=== PATIENT | female | born 1940 | race Caucasian/White ===

== ENCOUNTER → 2016-09-28 | Outpatient (CLI) | payer MEDICARE ==
--- NOTE | 2016-09-28 10:19 | REPMRS ---
Patient History The patient states she had a clinical breast exam in 09/25 Patient is postmenopausal and has history of skin cancer at age 46. Family history of colorectal cancer in father at age 50 or over. Digital Woman Screen Mammo: September 28, 2016 - Exam #: [id number] Bilateral CC and MLO view(s) were taken. Technologist: Mikayla Brennan, Technologist Prior study comparison: September 26, 2015, digital woman screen mammo performed at [facility]. September 24, 2014, digital woman screen mammo performed at [facility]. September 24, 2013, digital woman screen mammo performed at [facility] to [facility]. FINDINGS: There are scattered fibroglandular densities. There has been no change in the appearance of the mammogram from the prior studies. There is a mild amount of scattered fibroglandular density which is fairly symmetric. There is no interval development of dominant mass, architectural distortion, or clustered microcalcification suggestive of malignancy. ASSESSMENT: BI-RADS/ACR category 1 mammogram. Negative. Recommendation Routine screening mammogram in 1 year (for women over age 40). This mammogram was interpreted with the aid of an FDA-approved computer-aided dectection system. Electronically Signed By: Norman Sheldon MD 09/28/16 [id number]
--- NOTE | 2016-10-01 10:18 | DEXA ---
AP SPINE L1 - L4 1.084 -0.9 0.5 LT FEMUR TOTAL 0.956 -0.4 1.1 RT FEMUR TOTAL 0.941 -0.5 1.0 TOTAL BODY TOTAL OTHER DUAL FEMUR FRAX* ASSESSMENT Risk factors: History of fracture as an adult. 10 year probability of fracture Major osteoporotic fracture 13.4 % Hip fracture 1.6 % COMMENTS: Normal bone densitometry of the spine and hips. The density of the spine has increased 21.0% since the initial exam on 2004. The spine density has decreased 3.6% since the most recent exam on 08/20/2012. The density of the left hip has increased 4.1% since the initial exam on 2004. The density of the left hip has increased 0.4% since the most recent exam on 08/2012. The density of the right hip has decreased 0.4% since the initial exam on 2004. The density of the right hip has decreased 1.3% since the most recent exam on . FOLLOW-UP: Recommendation for the next bone density exam: 5 years. MTDD
== END ==
LOC: M WHC 08:27
PROVIDERS: ATTEND Nurse Practitioner Family
DX: Z12.31 Encounter for screening mammogram for malignant neoplasm of breast (principal); Z78.0 Asymptomatic menopausal state; Z80.0 Family history of malignant neoplasm of digestive organs
CPT/HCPCS: 77080; G0202

== ENCOUNTER → 2017-11-01 | Outpatient (CLI) | payer MEDICARE | LOC: M WHC 08:52 | DX: Z12.31 Encounter for screening mammogram for malignant neoplasm of breast (principal); Z78.0 Asymptomatic menopausal state | CPT/HCPCS: 77067 ==

== ENCOUNTER 2018-03-26 07:15 | Day surgery (SDC) | payer MEDICARE ==
[2018-03-26] MEDS: NS 1,000 ML IV (07:29)
[2018-03-26] MEDS ORDERED: PROPOFOL 200 MG/20 ML VIAL As Ordered (07:51)
[2018-03-26] MEDS ORDERED: LIDOCAINE 2% INJ 100 MG/5 ML SDV (FOR ANES.) As Ordered (07:51)
== END 2018-03-26 09:40 | disposition home or self-care (01) ==
LOC: M OPP 07:15
DX: Z12.11 Encounter for screening for malignant neoplasm of colon (principal); Z64.0 Problems related to unwanted pregnancy; K57.30 Diverticulosis of large intestine without perforation or abscess without bleeding; Z86.010 Personal history of colon polyps; K21.9 Gastro-esophageal reflux disease without esophagitis; I10 Essential (primary) hypertension; M12.9 Arthropathy, unspecified; Z79.899 Other long term (current) drug therapy; Z87.891 Personal history of nicotine dependence; Z78.0 Asymptomatic menopausal state; Z98.51 Tubal ligation status
CPT/HCPCS: G0105

== ENCOUNTER → 2018-11-10 | Outpatient (CLI) | payer MEDICARE ==
[~2018-11-10] MED LIST: CALTCHW4 PO; LOSA100T5 PO; MULT1TAB10 PO; POTA10TA16 PO; VITA100066 PO
--- NOTE | 2018-11-10 11:10 | REPMRS ---
Patient History The patient states she had a clinical breast exam in 11/2018. Family history of colorectal cancer at age 50 or over in father. 3D TOMOSYNTHESIS WAS PERFORMED. Digital Woman Screen Mammo: November 10, 2018 - Exam #: [id number] Bilateral CC and MLO view(s) were taken. Technologist: Arlene Lang Technologist Prior study comparison: November 01, 2017, digital woman screen mammo performed at [facility] to [facility]. September 28, 2016, digital woman screen mammo performed at [facility] to [facility]. FINDINGS: There are scattered fibroglandular densities. There has been no change in the appearance of the mammogram from the prior studies. There is a mild amount of residual fibroglandular tissue which is fairly symmetric. There is no interval development of dominant mass, architectural distortion, or clustered microcalcification suggestive of malignancy. Assessment: BI-RADS/ACR category 1 mammogram. Negative Mammogram. Recommendation Routine screening mammogram in 1 year (for women over age 40). This mammogram was interpreted with the aid of an FDA-approved computer-aided dectection system. Electronically Signed By: Wilder Coulter MD 11/10/18 0093
== END ==
LOC: M WHC 09:24
PROVIDERS: ATTEND Nurse Practitioner Family
DX: Z12.31 Encounter for screening mammogram for malignant neoplasm of breast (principal)

== ENCOUNTER → 2019-11-11 | Outpatient (CLI) | payer MEDICARE ==
--- NOTE | 2019-11-11 11:35 | REPMRS ---
Patient History The patient states she had a clinical breast exam in November 2019. Family history of colorectal cancer at age 50 or over in father. Digital Woman Screen Mammo: November 11, 2019 - Exam #: [id number] Bilateral CC and MLO view(s) were taken. Technologist: RT Eli Prior study comparison: November 10, 2018, bilateral digital woman screen mammo performed at [facility]. November 01, 2017, digital woman screen mammo performed at [facility]. September 28, 2016, digital woman screen mammo performed at [facility]. FINDINGS: There are scattered fibroglandular densities. There has been no change in the appearance of the mammogram from the prior studies. There is a mild amount of scattered fibroglandular density which is fairly symmetric. There is no interval development of dominant mass, architectural distortion, or grouped microcalcification suggestive of malignancy. 3-D tomosynthesis shows no additional findings. Assessment: BI-RADS/ACR category 1 mammogram. Negative Mammogram. Recommendation Routine screening mammogram of both breasts in 1 year (for women over age 40). This patient's Lifetime Breast Cancer Risk is estimated at 2.4 %. This mammogram was interpreted with the aid of an FDA-approved computer-aided dectection system. Electronically Signed By: Norman Sheldon MD 11/11/19 0245
== END ==
LOC: M WHC 09:06
PROVIDERS: ATTEND Nurse Practitioner Family
DX: Z12.31 Encounter for screening mammogram for malignant neoplasm of breast (principal); Z80.0 Family history of malignant neoplasm of digestive organs

== ENCOUNTER → 2020-11-11 | Outpatient (CLI) | payer MEDICARE ==
--- NOTE | 2020-11-11 10:20 | REPMRS ---
Patient History The patient states she had a clinical breast exam in 11/2020 Family history of colorectal cancer at age 50 or over in father. 3D TOMOSYNTHESIS WAS PERFORMED. The Yao Nelson lifetime risk for breast cancer is 2.1%. Volpara breast density b. Digital Woman Screen Mammo: November 11, 2020 - Exam #: [id number] Bilateral CC and MLO view(s) were taken. Technologist: Mikayla Brennan, Technologist Prior study comparison: November 11, 2019, bilateral digital woman screen mammo performed at [facility]. November 10, 2018, bilateral digital woman screen mammo performed at [facility]. FINDINGS: There are scattered fibroglandular densities. There has been no change in the appearance of the mammogram from the prior studies. There is a mild amount of residual fibroglandular tissue which is fairly symmetric. There is no interval development of dominant mass, architectural distortion, or clustered microcalcification suggestive of malignancy. Assessment: BI-RADS/ACR category 1 mammogram. Negative Mammogram. Recommendation Routine screening mammogram in 1 year (for women over age 40). This mammogram was interpreted with the aid of an FDA-approved computer-aided dectection system. Electronically Signed By: Wilder Coulter MD 11/11/20 1015
--- NOTE | 2020-11-11 12:43 | DEXAMM ---
INDICATION: Z78.0MENOPAUSAL. COMPARISON: 09/28/2016 as well as other prior exams. TECHNIQUE: Bone density was measured using dual-energy x-ray absorptiometry (DEXA). FINDINGS: AP SPINE L1-L4 BMD 1.001 g/cm2 Young Adult T-Score -1.6 Age Matched Z-Score 0.3. LT FEMUR, TOTAL BMD 0.916 g/cm2 Young Adult T-Score -0.7 Age Matched Z-Score 1.2. LT NECK BMD 0.939 g/cm2 Young Adult T-Score -0.7 Age Matched Z-Score 1.4. RT FEMUR, TOTAL BMD 0.900 g/cm2 Young Adult T-Score -0.9 Age Matched Z-Score 1.1. RT NECK BMD 0.949 g/cm2 Young Adult T-Score -0.6 Age Matched Z-Score 1.5. IMPRESSION: There is low bone density of the spine. There is normal bone density of the left hip. There is normal bone density of the right hip. The density of the spine has increased 11.7% since the initial exam on 06/04/2005. The density of the spine decreased 7.7% since most recent exam on 09/28/2016. The density of the left hip has decreased 0.2% since initial exam on 06/04/2005. The density of the left hip has decreased 4.2% since most recent exam on 09/28/2016. The density of the right hip has decreased 4.8% since the initial exam on 06/04/2005. The density of the right hip has decreased 4.4% since the most recent exam on 09/28/2016. FOLLOW-UP: Recommendation for the next bone density exam: 2 years. <Electronically signed by Wilder Coulter > 11/11/20 [id number]
== END ==
LOC: M WHC 08:56
PROVIDERS: ATTEND Nurse Practitioner Family
DX: Z12.31 Encounter for screening mammogram for malignant neoplasm of breast (principal); Z78.0 Asymptomatic menopausal state; Z80.0 Family history of malignant neoplasm of digestive organs

== ENCOUNTER → 2021-11-13 | Outpatient (CLI) | payer MEDICARE ==
[~2021-11-13] MED LIST changes: +POTA-149 PO; -POTA10TA16 PO
== END ==
LOC: M WHC 08:53
PROVIDERS: ATTEND Nurse Practitioner Women's Health
DX: Z12.31 Encounter for screening mammogram for malignant neoplasm of breast (principal)

== ENCOUNTER → 2023-01-09 | Outpatient (CLI) | payer MEDICARE | LOC: M WHC 11:26 | PROVIDERS: ATTEND Obstetrics & Gynecology | DX: Z12.31 Encounter for screening mammogram for malignant neoplasm of breast (principal); R92.8 Other abnormal and inconclusive findings on diagnostic imaging of breast ==

== ENCOUNTER → 2023-01-16 | Outpatient (CLI) | payer MEDICARE | LOC: M WHC 10:46 | PROVIDERS: ATTEND Obstetrics & Gynecology | DX: R92.2 Inconclusive mammogram (principal) | CPT/HCPCS: 77065; 77080; G0279 ==

== ENCOUNTER → 2024-01-14 | Outpatient (CLI) | payer MEDICARE | LOC: M WHC 09:18 | PROVIDERS: ATTEND Family Medicine | DX: Z12.31 Encounter for screening mammogram for malignant neoplasm of breast (principal); Z13.820 Encounter for screening for osteoporosis ==

== ENCOUNTER → 2024-01-14 | Outpatient (CLI) | payer MEDICARE | LOC: M WHC 09:17 | PROVIDERS: ATTEND Obstetrics & Gynecology | DX: Z12.31 Encounter for screening mammogram for malignant neoplasm of breast (principal); Z13.820 Encounter for screening for osteoporosis; N63.20 Unspecified lump in the left breast, unspecified quadrant ==

== ENCOUNTER → 2024-01-27 | Outpatient (CLI) | payer MEDICARE | LOC: M WHC 12:28 | PROVIDERS: ATTEND Obstetrics & Gynecology | DX: Z12.31 Encounter for screening mammogram for malignant neoplasm of breast (principal) ==

== ENCOUNTER → 2024-07-29 | Outpatient (CLI) | payer MEDICARE | LOC: M WHC 12:59 | PROVIDERS: ATTEND Obstetrics & Gynecology | DX: R92.8 Other abnormal and inconclusive findings on diagnostic imaging of breast (principal); R92.333 Mammographic heterogeneous density, bilateral breasts; N63.23 Unspecified lump in the left breast, lower outer quadrant | CPT/HCPCS: 76642; 77065; G0279 ==

== ENCOUNTER → 2025-01-21 | Outpatient (CLI) | payer MEDICARE | LOC: M WHC 07:39 | PROVIDERS: ATTEND Obstetrics & Gynecology | DX: R92.8 Other abnormal and inconclusive findings on diagnostic imaging of breast (principal) | CPT/HCPCS: 77066; G0279 ==

== ENCOUNTER 2025-08-02 07:42 | Day surgery (SDC) | payer MEDICARE ==
[~2025-08-02] VITALS: Ht 157.5 cm; Wt 71.2 kg
[~2025-08-02 07:42] MED LIST changes: +HYDR-3490 PO; +LOSA100T46 PO; +LR 1,000 ML IV SCH; +MULTTAB61 PO; +VITA100093 PO
[2025-08-02] MEDS: TETRACAINE 0.5% OPHTH SOLN 4ML OS SCH (08:17)
[2025-08-02] MEDS: FLURBIPROFEN 0.03% OPHTH SOLN 2.5 ML OS SCH (08:17)
[2025-08-02] MEDS: CYCLOPENTOLATE 1% OPHTH SOLN 2 ML BTL OS SCH (08:17)
[2025-08-02] MEDS: PHENYLEPHRINE 2.5% OPHTH SOL 2ML OS SCH (08:17)
[2025-08-02] MEDS: LIDOCAINE 1% SDV 5 ML VIAL As Ordered ONE (09:55)
[2025-08-02] MEDS: CEFUROXIME 1 MG/0.1 ML INTRACAMERAL INJ As Ordered ONE (09:55)
[2025-08-02 10:16] VITALS: BP 150/76; TEMP 97.7; O2SAT 99
== END 2025-08-02 10:32 | disposition home or self-care (01) ==
LOC: M SDC 07:42
PROVIDERS: ATTEND Ophthalmology
DX: H25.12 Age-related nuclear cataract, left eye (principal); I10 Essential (primary) hypertension; Z79.899 Other long term (current) drug therapy
CPT/HCPCS: 66984; J0697; J3010; V2632